=== PATIENT | female | born 1975 | race Caucasian/White ===

== ENCOUNTER 2024-04-12 18:03 | Emergency (ER) | payer SELFPAY ==
[2024-04-12 18:13] VITALS: BP 133/103
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
[2024-04-12 21:52] VITALS: BP 122/73
== END 2024-04-12 21:54 | disposition home or self-care (01) ==
LOC: EMR 18:03
PROVIDERS: EMERGENCY PHYSICIAN Emergency Medicine
DX: S39.012A Strain of muscle, fascia and tendon of lower back, initial encounter (principal); S29.011A Strain of muscle and tendon of front wall of thorax, initial encounter; M54.2 Cervicalgia; V49.40XA Driver injured in collision with unspecified motor vehicles in traffic accident, initial encounter
CPT/HCPCS: 99284; 71101; 72040; 72110